=== PATIENT | male | born 1990 | race African-American/Black ===

== ENCOUNTER 2022-03-26 04:14 | Emergency (ER) | payer SELFPAY ==
[~2022-03-26] VITALS: Ht 175.3 cm; Wt 93.0 kg
[2022-03-26 04:20] VITALS: BP 128/68
--- NOTE | 2022-03-26 04:28 | NUR ---
Patient left without being seen by ER Physician Dr. Robin GROSS. Pt ambulatory with a steady gait on room air.
== END 2022-03-26 04:32 | disposition left against medical advice (07) ==
LOC: ER 04:21
DX: Z53.21 Procedure and treatment not carried out due to patient leaving prior to being seen by health care provider (principal)